=== PATIENT | male | born 1960 | race Caucasian/White ===

== ENCOUNTER 2022-03-20 15:08 | Emergency (ER) | payer OTHER, SELFPAY ==
--- NOTE | 2022-03-20 15:12 | ED.EAR ---
HPI - Ear Problem General Chief complaint: Ear Stated complaint: left ear pain Time Seen by Provider: 03/20/22 15:13 Source: patient Mode of arrival: ambulatory Limitations: no limitations History of Present Illness HPI Narrative: Mr. Dang is a 61-year-old male patient presenting to the clinic today with complaints of left ear pain X 2 weeks. He reports that his outer ear is swelling and building up fluid. He reports that he has tried to drain this without success. Has a history of getting frequent boils. External ear is red, hot to touch and tender to touch. He also reports that his ears are muffled and would like his ears to be cleaned out. MD Complaint: ear pain Related Data Allergies Allergy/AdvReac Type Severity Reaction Status Date / Time cefazolin Allergy Mild Hives Verified 03/20/22 15:37 Review of Systems Review of Systems: Pertinent positives per HPI. Patient denies any fever, chills, rash, headache, visual changes, dizziness, cough, runny nose, sore throat, shortness of breath, chest pain, palpitations, nausea, vomiting, diarrhea, constipation, abdominal pain, or any urinary issues. PMFSH Comments At the time of my signature, I reviewed and agree with the nursing past medical, surgical, social, and family history. There is no relevant family history pertinent to the patient complaint. Exam Narrative: General: Well-developed, well nourished, in no apparent distress Head: Normocephalic, atraumatic Eyes: Pupils equally round and reactive to light bilaterally, EOM intact, sclera and conjunctive clear, no discharge, lids normal Ears: Ear canals ceruminous, unable to visualize TMs, no drainage, hard of hearing. Left pinna swollen, red, fluctuant to palpation, tender, and erythemic. Nose: Nares patent, no discharge, no inflammation, no sinus tenderness. Mouth: Oropharynx without lesions or masses, good dentition, MMM. Neck: Supple, trachea midline, no enlargement of anterior or posterior cervical nodes, no thyroid masses or goiter palpable. Cardio: Regular rate and rhythm, s1 and s2 normal, no murmur appreciated. Resp: Clear to auscultation bilaterally anteriorly and posteriorly, no rhonchi, rales, wheezing or rubs Course Course Emergency Course: Portions of this record may have been created with voice recognition software. Level of Care: Express Care Visit Vital Signs Vital signs: Vital signs reviewed Procedures Abscess I/D Left ear: Date of Incision: 03/20/22 Side (if applicable): left Technique: needle aspiration Irrigation: No Packing used?: none I&D Results: Other (Serous fluid) Abcess I&D Additional Comments: Verbal consent obtained for incision and drainage. Risk and benefits explained and patient voiced understanding. Area was cleansed with technic care. Area was prepped and draped using sterile technique. An 18-gauge needle was then used to aspirate 3 ml of serous fluid from the left pinna. Patient tolerated well. Culture obtained and sent to lab. Ear Wax Removal Left Ear: Ear Wax Removal Date: 03/20/22 Additional Comments: After attempting ear lavage to left ear patient requested for me to discontinue as this was painful and he was concerned that his ear canal will swell up. No results. Medical Decision Making MDM Narrative Medical decision making narrative: At the time of assessment patient is resting comfortably on the exam table. Discussed incision and drainage of the left pinna and patient voiced understanding. An 18-gauge needle was used to aspirate fluid from the pinna and this was sent for a culture. Due to the history of boils and the cellulitis to the left pinna I will go ahead and place the patient on a prescription for Bactrim DS. Attempted to irrigate left ear however patient was unable to tolerate this and requested for me to stop after approximately 4 squirts in his ear. No results were obtained by ear lavage. Differential
[2022-03-20 15:16] VITALS: BP 137/109; PULSE 73; RESP 16; TEMP 36.3; O2SAT 97
--- NOTE | 2022-03-20 16:13 | PC.NURSE ---
1520- LOGISTICS CENTER MANAGER used 18 gauge needle to aspirate some fluid out of the upper ear cartilage. 3ml serosanginous fluid return. pt tolerated well. culture sent off of the fluid, covered area with a bandaid. 1540- pt was not able to the flushing of the ear with the elephant ear irrigation, and asked LOGISTICS CENTER MANAGER to stop.
== END 2022-03-20 15:47 | disposition home or self-care (01) ==
PROVIDERS: Emergency Provider Nurse Practitioner Family
DX: H60.12 Cellulitis of left external ear (principal); H61.23 Impacted cerumen, bilateral; I10 Essential (primary) hypertension; M19.90 Unspecified osteoarthritis, unspecified site
CPT/HCPCS: 10160; 87070; 87075; 87205; 99213; G0463

== ENCOUNTER 2022-04-22 17:49 | Emergency (ER) | payer OTHER, SELFPAY ==
[2022-04-22 18:07] VITALS: BP 130/90; PULSE 70; RESP 16; TEMP 36.7; O2SAT 99
--- NOTE | 2022-04-22 18:20 | ED.SKABFB ---
HPI - Skin/Abscess/Foreign Bdy General Chief complaint: Skin/Abscess/Foreign Body Stated complaint: rash Time Seen by Provider: 04/22/22 18:10 Source: patient Mode of arrival: ambulatory Limitations: no limitations History of Present Illness HPI narrative: 61-year-old male presented for complaint of rash to shoulders, back and arms for about 2 weeks. States the lesions are red, raised, and itch. He denies any drainage or pain to the sites. States his girlfriend is concerned that there is bedbugs. He endorses severe allergic reaction to pollen and poison jasmyne. He states he has been cutting the grass and pulling weeds lately. complaint: rash Related Data Home Medications Medication Instructions Recorded Confirmed No Home Medications 04/22/22 04/22/22 Allergies Allergy/AdvReac Type Severity Reaction Status Date / Time cefazolin Allergy Mild Hives Verified 04/22/22 17:57 Review of Systems Review of Systems: CONSTITUTIONAL: Denies body aches, fever, chills, or sweats. EYES: Denies visual changes, redness, or discharge. ENT: Denies rhinorrhea, congestion, sore throat CARDIOVASCULAR: Denies chest pain, palpitations, or edema. RESPIRATORY: Denies cough or dyspnea. GASTROINTESTINAL: Denies abdominal pain, nausea, vomiting, or diarrhea. SKIN:reports rash, itching MUSCULOSKELETAL: Denies back pain, joint pain, or myalgia. NEUROLOGIC: Denies headache, numbness, tingling, or weakness. PSYCH: Denies depression or anxiety. PMFSH Comments At time of signature, I have reviewed and agree with nursing past medical, surgical, social and family history unless otherwise noted. Please see nursing chart for further information. There is no relevant family history pertinent to the presenting complaint Exam Narrative: GENERAL: Well-appearing, appears older than stated age. ENT: Mucous membranes moist. NECK: Supple. CHEST: Clear to auscultation. No respiratory distress. HEART: Regular rate and rhythm. SKIN: Warm, dry. poor turgor. Patches of erythematous raised rash to upper shoulders, posterior neck, and arms, c/w dermatitis; no vesicles/drainage or tenderness to the sites. NEURO: Alert and oriented x3. PSYCH: Normal mood and affect Course Course Emergency Course: Patient is aware of diagnosis, understands and agrees to treatment plan. Anticipatory guidance given. Patient agrees to follow-up as directed and is aware of reasons to seek care at the emergency department. Portions of this record may have been created with voice recognition software Level of Care: Express Care Visit Vital Signs Vital signs: Vital Signs Temperature 98.0 F 04/22/22 18:07 Pulse Rate 70 04/22/22 18:07 Respiratory Rate 16 04/22/22 18:07 Blood Pressure 130/90 04/22/22 18:07 Pulse Oximetry 99 04/22/22 18:07 Oxygen Delivery Room Air 04/22/22 18:07 Temperature 98.0 F 04/22/22 18:07 Pulse Rate 70 04/22/22 18:07 Respiratory Rate 16 04/22/22 18:07 Blood Pressure 130/90 04/22/22 18:07 Pulse Oximetry 99 04/22/22 18:07 Oxygen Delivery Room Air 04/22/22 18:07 Reviewed MDM - Skin/Abscess/Foreign Bdy MDM Narrative Medical decision making narrative: Does not appear at this time to be erythema multiforme, bullous, SJS, TEN; no evidence at this time to suggest RMSF, endocarditis or Lyme disease; pt is stable, afebrile; appropriate for initial outpatient treatment; discussed the importance of follow-up, patient agrees. Declines steroid, wants to only take calamine lotion. Differential Diagnosis Differential diagnosis: Likely abscess of skin or subcutaneous tissue, urticaria, herpes zoster, cellulitis and contact dermatitis Discharge Plan Discharge Clinical Impression: Contact dermatitis Patient Disposition: Home, Self-Care Condition: Stable Instructions: Antibiotic Form, Contact Dermatitis (DC) Additional Instructions: Wash with gentle soap and water only. Use over the counter skin cre
== END 2022-04-22 18:34 | disposition home or self-care (01) ==
PROVIDERS: Emergency Provider Nurse Practitioner Family
DX: L25.9 Unspecified contact dermatitis, unspecified cause (principal); I10 Essential (primary) hypertension; M19.90 Unspecified osteoarthritis, unspecified site
CPT/HCPCS: 99211; G0463

== ENCOUNTER 2023-01-01 08:35 | Emergency (ER) | payer OTHER, SELFPAY ==
[2023-01-01] VITALS (40 sets, daily range): BP systolic 108–142; BP diastolic 66–111; PULSE 52–87; RESP 10–37; TEMP 37.1; O2SAT 97–100
--- NOTE | ~2023-01-01 | CT_ITS ---
Non-contrast Head CT History: Uncontrollable movements, altered mental status Technique: Axial non-contrast imaging of the brain was performed. Dose reduction technique was used on this scan by utilizing automated exposure control and iterative reconstruction technique. The dose -length product (DLP) was 605.33 mGy-cm. Findings: There is no evidence of intracranial hemorrhage, mass lesion, or acute infarct. Brain par enchyma appears normal. The ventricles and subarachnoid spaces are normal in size. The calvarium ap pears normal. The visualized paranasal sinuses and mastoid air cells are clear. Impression: No significant abnormality seen. Reviewed, dictated and finalized at location . CLE INSPECTOR Impression: No significant abnormality seen.
--- NOTE | ~2023-01-01 | XR_ITS ---
Clinical Indication: Weight loss, smoking history, shortness of breath PA and lateral views of the chest: Comparison: 02/26/2017 Findings: The lungs are clear, without evidence of focal consolidation or pleural effusion. Probable COPD. Cardiomediastinal silhouette is within normal limits. Bones and soft tissues are unremarkable. Impression: Probable COPD. Clear lungs. Reviewed, dictated and finalized at location . GY CONSERVATION DIRECTOR Impression: Probable COPD. Clear lungs.
--- NOTE | 2023-01-01 09:00 | ECG_ITS ---
Measurements Intervals Etoile Rate: 76 P: 78 ID: [id number] QRS: 82 QRSD: 92 T: 63 QT: 332 QTc: 374 Interpretive Statements SINUS RHYTHM CANNOT RULE OUT PREVIOUS SEPTAL MYOCARDIAL INFARCTION BORDERLINE ECG NO PREVIOUS ECG AVAILABLE FOR COMPARISON Electronically Signed On 01-01-2023 13:12:44 SMOKE CHASER by Maximilian Victoria M.D.
--- NOTE | 2023-01-01 09:37 | ED.GENADULT ---
HPI - General Adult General Chief complaint: Unspecified Stated complaint: numbness to arm, cramping to body Time Seen by Provider: 01/01/23 09:00 Source: patient Mode of arrival: EMS Limitations: no limitations History of Present Illness HPI narrative: Patient is a 62-year-old male who presents the ED via EMS with multiple complaints. Patient reports having issues with muscle cramping, spasming, and intermittent jerking of his upper and lower extremities for past 2 years. Over the last few months, the jerking and spasming have become painful. Patient has been treating his pain with street fentanyl. He states he uses a dab of fentanyl orally every 3 hours to control the pain. He does not inject medications. He has not tried anything else for pain and inquires about muscle relaxers. Patient also reports having had weight loss over the last few years. He does eat frequent meals and states his girlfriend cooks breakfast and lunch for him every day. Denies nausea, vomiting, abdominal pain, chest pain, difficulty breathing, fevers, cough, cold symptoms, dizziness, lightheadedness, passing out. Related Data Allergies Allergy/AdvReac Type Severity Reaction Status Date / Time cefazolin Allergy Mild Hives Verified 04/22/22 17:57 aspirin AdvReac Mild Muscle Verified 01/01/23 08:48 Spasms Review of Systems Review of Systems: CONSTITUTIONAL: Denies fever, chills, or sweats. EYES: Denies visual changes. ENT: Denies rhinorrhea, congestion, sore throat, or otalgia. CARDIOVASCULAR: Denies chest pain. RESPIRATORY: Denies cough or dyspnea. GASTROINTESTINAL: Denies abdominal pain, nausea, vomiting, or diarrhea. GENITOURINARY: Denies dysuria or hematuria. SKIN: Denies rash or itching. MUSCULOSKELETAL: See HPI. NEUROLOGIC: See HPI. All systems reviewed & are unremarkable except as noted in HPI and below PMFSH Past Medical History Medical History (Updated 01/01/23 @ 13:43 by Gisela Ramirez PA-C) No pertinent past medical history Surgical History Surgical History (Updated 01/01/23 @ 10:55 by Gisela Ramirez PA-C) No pertinent past surgical history Social History Social History (Updated 01/01/23 @ 10:55 by Gisela N. Gaudreault, PA-C) Smoking status: Current every day smoker Tobacco type: cigars Substance use: current Other substance usage details: Fentanyl Exam Narrative: GENERAL: Chronically ill, mildly disheveled, thin, non-toxic, in no acute distress. HEAD: Normocephalic, atraumatic. EYES: PERRLA/EOMI, conjunctiva clear. ENT: Partially edentulous. MMs normal. NECK: Supple. No adenopathy, no masses. RESPIRATORY: Airway patent, respirations nonlabored. Coarse lung sounds bilaterally. Clear to auscultation bilaterally, no rales, rhonchi, wheezing. CARDIOVASCULAR: Regular rate and rhythm without murmurs, rubs, or gallops. Radial and pedal pulses 2+ and equal bilaterally. ABDOMINAL: Soft, nontender, nondistended, no hepatosplenomegaly. Normoactive BS. MUSCULOSKELETAL: No gross deformities. Able to move all extremities but does appear generally weak. Good capillary refill peripherally in all extremities. SKIN: Warm, dry, normal color. No rashes. Clubbing noted to fingers bilaterally. Yellow stains to fingers bilaterally r/t cigarette smoking. NEURO: A&O X3. Speech clear. Cranial nerves II-XII grossly intact. No ataxic movements. No resting or intention tremor. No focal deficits. PSYCHIATRIC: Appropriate mood and affect. Normal interaction. Course Vital Signs Vital signs: Vital Signs Temperature 98.7 F 01/01/23 08:38 Pulse Rate 78 01/01/23 08:38 Respiratory Rate 18 01/01/23 08:38 Blood Pressure 140/111 H 01/01/23 08:38 Pulse Oximetry 100 01/01/23 08:38 Oxygen Delivery Room Air 01/01/23 08:38 Temperature 98.7 F 01/01/23 08:38 Pulse Rate 53 L 01/01/23 12:46 Respiratory Rate 15 01/01/23 12:46 Blood Pressure 116/74 01/01/23 13:01 Pulse Oximetry 100 01/01/23 13:15 Oxy
[2023-01-01 10:00] LABS: Basophils Absolute Auto 0.1 K/mm3 (0.0-0.1); Basophils Percent Auto 0.8 % (0.2-1.2); Eosinophils Absolute Auto 1.1 K/mm3 (0-0.3); Eosinophils Percent Auto 10.4 % (0-4.4); Hematocrit 43.3 % (42.0-52.0); Hemoglobin 14.5 g/dL (14.0-18.0); Immature Granulocyte Absolute 0.03 K/mm3 (0.00-0.031); Immature Granulocyte Percent A 0.3 % (0-0.5); Lymphocytes Absolute Auto 1.96 K/mm3 (0.9-3.2); Lymphocytes Percent Auto 18.6 % (18.3-44.2); Mean Corpuscular HGB Conc 33.5 g/dl (32-36); Mean Corpuscular Hemoglobin 30.6 pg (26-34); Mean Corpuscular Volume 91.4 fl (80-100); Mean Platelet Volume 9.6 fl (7.4-10.4); Monocytes Absolute Auto 0.9 K/mm3 (0.1-0.6); Monocytes Percent Auto 8.1 % (2.6-8.5); Neutrophils Absolute Auto 6.5 K/mm3 (1.3-6.7); Neutrophils Percent Auto 61.8 % (45.5-73.1); Platelet Count Result 218 k/mm3 (150-375); Red Blood Count 4.74 M/mm3 (4.6-6.20); Red Cell Distribution Width 13.5 % (11.5-14.5); White Blood Count 10.5 K/mm3 (4.5-10.0)
[2023-01-01 10:11] LABS: Alanine Aminotransferase 17 U/L (6-50); Albumin Level 3.9 g/dL (3.5-5.1); Alkaline Phosphatase 86 U/L (38-126); Anion Gap 3 mmol/L (8-16); Aspartate Amino Transferase 24 U/L (17-59); Bilirubin,Total 0.6 mg/dL (0.2-1.3); Blood Urea Nitrogen 16 mg/dL (9-20); Calcium 8.8 mg/dL (8.4-10.2); Carbon Dioxide 31 mmol/L (22-30); Chloride 99 mmol/L (98-107); Estimated CRCL calculation 62 ml/min; Estimated Glomerular Filt Rate > 60; Glucose 110 mg/dL (65-110); Magnesium 1.7 mg/dL (1.6-2.3); Potassium 3.8 mmol/L (3.4-5.0); Sodium 133 mmol/L (137-145)
== END 2023-01-01 14:24 | disposition home or self-care (01) ==
PROVIDERS: Emergency Provider Physician Assistant
DX: M62.838 Other muscle spasm (principal); F11.20 Opioid dependence, uncomplicated; F17.290 Nicotine dependence, other tobacco product, uncomplicated; R94.31 Abnormal electrocardiogram [ECG] [EKG]
CPT/HCPCS: 36415; 70450; 71046; 80053; 83735; 85025; 93005; 99284

== ENCOUNTER 2023-01-29 23:09 | Emergency (ER) | payer OTHER, SELFPAY ==
--- NOTE | ~2023-01-29 | CT_ITS ---
EXAMINATION: CT cervical spine wo con DATE: 01/30/2023 01:12 INDICATION: 3 months of diffuse nontraumatic neck pain TECHNIQUE: Computed tomography (CT) of the cervical spine was performed without intravenous contrast. Automated exposure control and iterative reconstruction technique were employed. The dose-length pro duct was 268.28 mGy-cm. 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 Straightening of the normal cervical lordos is. Vertebral body heights are normal. No fracture. Moderate disc height loss at C2-C3 and C6-C7 with mild disc height loss at the remaining cervical levels. Cervical soft tissues are unremarkable. Mild emphysema the apices of lungs. The following disc levels are specifically discussed: C2-C3: Posterior disc osteophyte complex. There is severe bilateral uncovertebral joint osteoarthriti s. There is moderate left facet joint osteoarthritis. Fusion with prominent hypertrophic change at th e right facet joint. There is moderate right and moderate to severe left neural foraminal stenosis. T here is mild central canal stenosis. C3-C4: Disc is bulging. There is mild left and moderate to severe right uncovertebral joint osteoarth ritis. There is moderate left and severe right facet joint osteoarthritis. There is mild bilateral ne ural foraminal stenosis. There is moderate central canal stenosis. C4-C5: Posterior disc osteophyte complex. There is mild right and moderate left uncovertebral joint o steoarthritis. There is moderate right and severe left facet joint osteoarthritis. There is moderate left and mild right neural foraminal stenosis. There is mild central canal stenosis. C5-C6: Posterior disc osteophyte complex. There is severe left and moderate to severe right uncoverte bral joint osteoarthritis. There is moderate left and severe right facet joint osteoarthritis. There is moderate bilateral neural foraminal stenosis. There is mild to moderate central canal stenosis. C6-C7: Disc is bulging. There is severe bilateral uncovertebral joint osteoarthritis. There is modera te right and severe left facet joint osteoarthritis. There is moderate bilateral neural foraminal liyah nosis. There is moderate central canal stenosis. C7-T1: The disc does not extend beyond the endplate margin. There is mild bilateral uncovertebral maddi nt osteoarthritis. There is severe bilateral facet joint osteoarthritis. There is mild bilateral neur al foraminal stenosis. There is no central canal stenosis. IMPRESSION: 1. Moderate cervical spondylosis. Reviewed, dictated and finalized at location A. ORK SYSTEMS OPERATOR
[2023-01-29 23:23] VITALS: BP 138/78; PULSE 74; RESP 18; TEMP 36.8; O2SAT 97
[2023-01-29 23:47] LABS: Basophils Absolute Auto 0.1 K/mm3 (0.0-0.1); Basophils Percent Auto 0.6 % (0.2-1.2); Eosinophils Absolute Auto 0.3 K/mm3 (0-0.3); Eosinophils Percent Auto 3.3 % (0-4.4); Hematocrit 47.2 % (42.0-52.0); Hemoglobin 15.3 g/dL (14.0-18.0); Immature Granulocyte Absolute 0.04 K/mm3 (0.00-0.031); Immature Granulocyte Percent A 0.4 % (0-0.5); Lymphocytes Absolute Auto 1.86 K/mm3 (0.9-3.2); Lymphocytes Percent Auto 18.9 % (18.3-44.2); Mean Corpuscular HGB Conc 32.4 g/dl (32-36); Mean Corpuscular Hemoglobin 30.2 pg (26-34); Mean Corpuscular Volume 93.1 fl (80-100); Mean Platelet Volume 9.8 fl (7.4-10.4); Monocytes Absolute Auto 0.7 K/mm3 (0.1-0.6); Monocytes Percent Auto 6.9 % (2.6-8.5); Neutrophils Absolute Auto 6.9 K/mm3 (1.3-6.7); Neutrophils Percent Auto 69.9 % (45.5-73.1); Platelet Count Result 229 k/mm3 (150-375); Red Blood Count 5.07 M/mm3 (4.6-6.20); Red Cell Distribution Width 13.5 % (11.5-14.5); White Blood Count 9.8 K/mm3 (4.5-10.0)
[2023-01-29 23:54] LABS: INR 1.1; Partial Thromboplastin Time 29.3 SECONDS (22.3-36.8); Prothrombin Time 13.6 Seconds (11.1-14.7)
[2023-01-30 00:06] LABS: Alanine Aminotransferase 17 U/L (6-50); Albumin Level 4.2 g/dL (3.5-5.1); Alkaline Phosphatase 103 U/L (38-126); Anion Gap 4 mmol/L (8-16); Aspartate Amino Transferase 24 U/L (17-59); Bilirubin,Total 0.6 mg/dL (0.2-1.3); Blood Urea Nitrogen 17 mg/dL (9-20); Calcium 9.1 mg/dL (8.4-10.2); Carbon Dioxide 31 mmol/L (22-30); Chloride 100 mmol/L (98-107); Estimated CRCL calculation 67 ml/min; Estimated Glomerular Filt Rate > 60; Glucose 103 mg/dL (65-110); Potassium 4.4 mmol/L (3.4-5.0); Sodium 135 mmol/L (137-145)
[2023-01-30 00:20] VITALS: BP 140/82; BP 156/89; PULSE 65; PULSE 70
[2023-01-30 00:24] VITALS: BP 150/110; PULSE 94
--- NOTE | 2023-01-30 00:55 | ED.GENADULT ---
HPI - General Adult General Chief complaint: GI Bleed Stated complaint: bright red rectal bleeding Time Seen by Provider: 01/30/23 00:08 Source: patient and old records reviewed Mode of arrival: EMS Limitations: no limitations History of Present Illness HPI narrative: Patient is a 62-year-old male who presents the ED via EMS with report of bright red rectal bleeding. Patient reports he was sitting in his recliner tonight and when he got up he noticed some bright red rectal bleeding on the chair. He wiped himself and noticed more blood. Patient denied any pain. EMS was then called. Patient does fentanyl orally every 6 hours. He does report frequent constipation related to this. He states he typically has a bowel movement every 3 days. He last had a bowel movement yesterday. Denied any rectal bleeding or melena at that time. He denies any abdominal pain, rectal pain, nausea, vomiting, urinary symptoms, fever, dizziness, lightheadedness. Patient also reports having neck pain for the last 3 months. He denies any injury. He has not tried anything for the pain other than fentanyl. He does report having tingling in his extremities for the last 2 years, has previously been seen in the ED for the symptoms and was referred to neurology. He has an appointment with neurology on 02/03. Related Data Allergies Allergy/AdvReac Type Severity Reaction Status Date / Time cefazolin Allergy Mild Hives Verified 01/29/23 23:29 aspirin AdvReac Mild Muscle Verified 01/29/23 23:29 Spasms Review of Systems Review of Systems: CONSTITUTIONAL: Denies fever, chills, or sweats. CARDIOVASCULAR: Denies chest pain. RESPIRATORY: Denies dyspnea. GASTROINTESTINAL: See HPI. GENITOURINARY: Denies dysuria or hematuria. SKIN: Denies rash or itching. MUSCULOSKELETAL: See HPI. NEUROLOGIC: See HPI. All systems reviewed & are unremarkable except as noted in HPI and below PMFSH Past Medical History Medical History No pertinent past medical history Surgical History Surgical History No pertinent past surgical history Social History Social History Smoking status: Current every day smoker Tobacco type: cigars Substance use: current Other substance usage details: Fentanyl Exam Narrative: GENERAL: Chronically ill-appearing, disheveled, thin, non-toxic, in no acute distress. HEAD: Normocephalic, atraumatic. NECK: Supple. No adenopathy, no masses. No meningeal signs. Full ROM. Diffuse nonspecific tenderness. RESPIRATORY: Airway patent, respirations nonlabored. Coarse breath sounds but clear to auscultation bilaterally, no rales, rhonchi, wheezing. CARDIOVASCULAR: Regular rate and rhythm without murmurs, rubs, or gallops. Peripheral pulses 2+ and equal bilaterally. ABDOMINAL: Soft, no tenderness to palpation, nondistended, no hepatosplenomegaly. Normoactive BS. RECTAL: Normal rectal tone. External hemorrhoid noted on exam, slightly smaller than the size of a marble, hemorrhoid thrombosed with clot almost entirely evacuated. Bleeding coming from clot. No significant tenderness over hemorrhoid. BRENDEN with brown stool noted, guaiac positive however likely contaminant from hemorrhoid. MUSCULOSKELETAL: Moves all extremities. Strength/ROM intact without gross deformities. SKIN: Warm, dry, normal color. No rashes. NEURO: A&O X3. Speech clear. Cranial nerves II-XII grossly intact. No ataxic movements. PSYCHIATRIC: Anxious, tearful. Normal interaction. Course Vital Signs Vital signs: Vital Signs Temperature 98.2 F 01/29/23 23:23 Pulse Rate 74 01/29/23 23:23 Respiratory Rate 18 01/29/23 23:23 Blood Pressure 138/78 01/29/23 23:23 Pulse Oximetry 97 01/29/23 23:23 Oxygen Delivery Room Air 01/29/23 23:23 Temperature 98 F 01/30/23 03:31 Pulse Rate 77
[2023-01-30 03:31] VITALS: BP 131/69; PULSE 77; RESP 18; TEMP 36.6; O2SAT 99
== END 2023-01-30 03:31 | disposition home or self-care (01) ==
PROVIDERS: Emergency Medicine; Emergency Provider Physician Assistant; PCP Family Medicine
DX: K64.4 Residual hemorrhoidal skin tags (principal); M54.2 Cervicalgia; K59.03 Drug induced constipation; J44.9 Chronic obstructive pulmonary disease, unspecified
CPT/HCPCS: 36415; 72125; 80053; 85025; 85610; 85730; 86850; 86900; 86901; 99284

== ENCOUNTER 2023-02-09 12:20 | Outpatient (CLI) | payer OTHER, SELFPAY ==
--- NOTE | ~2023-02-09 | CT_ITS ---
Noncontrast CT scan of the cervical spine Technique: Multiple contiguous axial [address] images of the cervical spine were obtained and rec onstructed in 2D sagittal and coronal planes on the acquisition scanner. Dose reduction technique was used on this scan by utilizing automated exposure control, adjustment of the mA and/or kV according to patient size. Clinical History: Jerking movement of extremities COMPARISON: 01/30/2023 Findings: No acute fracture seen. Osseous alignment is unchanged from prior exam. Stable mild grade 1 anterolisthesis of C2 over C3, and of C3 over C4. Stable moderate degenerative disc narrowing at C2- C3 and C5 and C6 and C6-C7. At C2-C3, there is mild disc ossify complex with right-sided facet joint hypertrophy and bilateral ne ural foraminal narrowing. At C3-C4, there is mild right-sided facet arthropathy. Small central disc bulge present, probable mil d central canal stenosis. There is probable bilateral neural foraminal narrowing. At C4-C5, there is minimal disc bulge. There is left-sided facet arthropathy with severe left neural foraminal narrowing. At C5-C6, there is mild central canal stenosis. There is bilateral neural foraminal narrowing with fa cet arthropathy, right worse than left. At C6-C7, there is probable minimal canal stenosis. There is minimal bilateral neural foraminal narro wing. No prevertebral soft tissue swelling. Impression: No fracture. Moderate degenerative spondylosis is unchanged from recent prior exam. Minimal grade 1 anterolisthesis of C2 over C3, and of C3 over C4, unchanged. Reviewed, dictated and finalized at [facility]. Impression: No fracture. Moderate degenerative spondylosis is unchanged from recent prior exam. Minimal grade 1 anterolisthesis of C2 over C3, and of C3 over C4, unchanged.
--- NOTE | ~2023-02-09 | CT_ITS ---
Noncontrast CT scan of the thoracic and lumbar spine CLINICAL HISTORY: Jerking movements of the extremities TECHNIQUE: Axial noncontrast imaging of the thoracic and lumbar spine was performed. Sagittal and cor onal reformatted images were constructed. Dose reduction technique was used on this scan by utilizing automated exposure control and iterative reconstruction technique. The dose-length product (DLP) was 796.84 mGy-cm. Thoracic spine findings: No fracture or subluxation suspicious spine. Intervertebral disc spaces are relatively well-preserved. No definite spinal canal stenosis or cord compression. Paravertebral soft tissues are unremarkable. Lumbar spine findings: No fracture or subluxation identified. Prominent Schmorl's node at the superio r plate of L3. Small Schmorl's noted at the supraclavicular L5. There is moderate degenerative disc n arrowing at L5-S1. At L1-L2, there is no disc bulge or herniation. No spinal canal stenosis stenosis. Suspected moderate bilateral neural foraminal narrowing. At L2-L3, there is mild disc bulge and mild facet arthropathy. No akin spinal canal stenosis. Probab le severe bilateral neural foraminal narrowing. At L3-L4, there is disc bulge and facet arthropathy, with probable mild central canal stenosis. There is severe bilateral neural foraminal narrowing. At L4-L5, disc bulge and facet arthropathy are present, probable moderate to severe central canal liyah nosis. There is severe bilateral neural foraminal narrowing. At L5-S1, there is mild disc bulge. No definite spinal canal stenosis. There is moderate to advanced bilateral neural foraminal narrowing. Paravertebral soft tissues are unremarkable. IMPRESSION: Advanced degenerative spondylosis of the lumbar spine with multilevel severe neural foraminal narrowi ng. Probable moderate to severe central canal stenosis at L4-L5. Please see details above. No significant abnormality of the thoracic spine identified. Reviewed, dictated and finalized at location . IMPRESSION: Advanced degenerative spondylosis of the lumbar spine with multilevel severe ne ural foraminal narrowing. Probable moderate to severe central canal stenosis at L4-L5. Please see details above. No significant abnormality of the thoracic spine identified.
== END 2023-02-09 12:21 | disposition home or self-care (01) ==
PROVIDERS: Visit Provider Psychiatry & Neurology Neurology
DX: R25.2 Cramp and spasm (principal); M43.06 Spondylolysis, lumbar region; M43.12 Spondylolisthesis, cervical region
CPT/HCPCS: 72125; 72128; 72131

== ENCOUNTER 2023-03-16 08:59 | Outpatient (CLI) | payer OTHER, SELFPAY ==
--- NOTE | 2023-03-16 11:15 | NEURO_ITS ---
Impression: Patient reports a history of of numbness in all 4 extremities. # Mild right Carpal Tunnel syndrome and moderate left Carpal Tunnel Syndrome. # Chronic neurogenic changes in right dorsal interosseus and extensor indicis proprius; This finding raises concern for a more proximal lesion such as right lower cervical radiculopathy. # Decreased CMAPs of left tibial nerve and left peroneal nerve, chronic neurogenic changes in the left fibularis longus and left extensor digitorum brevis, prolonged peroneal and tibial F-waves on the left; These findings raise concern for a more proximal lesion such as left lower lumbosacral radiculopathy. # Please note, paraspinal muscles were not examined. # Clinical correlation is recommended. Nerve Conduction Studies Anti Sensory Summary Table Stim Site NR Peak (ms) P-T Amp (?V) Site1 Site2 Delta-P (ms) Dist (cm) Miguel (m/s) Left Median Anti Sensory (2-3nd Digit) Wrist 4.9 4.4 Wrist 2-3nd Digit 4.9 14.0 29 Wrist 5.7 2.4 Wrist 2-3nd Digit 4.9 14.0 29 Right Median Anti Sensory (2-3nd Digit) Wrist 4.8 10.0 Wrist 2-3nd Digit 4.8 14.0 29 Wrist 4.7 6.8 Wrist 2-3nd Digit 4.8 14.0 29 Left Radial Anti Sensory (Base 1st Digit) Wrist 2.1 30.3 Wrist Base 1st Digit 2.1 0.0 Right Radial Anti Sensory (Base 1st Digit) Wrist 2.3 20.0 Wrist Base 1st Digit 2.3 0.0 Left Sup Fibular Anti Sensory (Ant Lat Mall) 14 cm 3.9 11.0 14 cm Ant Lat Mall 3.9 16.0 41 Right Sup Fibular Anti Sensory (Ant Lat Mall) 14 cm 3.9 1.3 14 cm Ant Lat Mall 3.9 16.0 41 Left Sural Anti Sensory (Lat Mall) Calf 4.0 29.9 Calf Lat Mall 4.0 16.0 40 Right Sural Anti Sensory (Lat Mall) Calf 3.7 29.2 Calf Lat Mall 3.7 16.0 43 Left Ulnar Anti Sensory (5th Digit) Wrist 3.7 12.9 Wrist 5th Digit 3.7 14.0 38 Right Ulnar Anti Sensory (5th Digit) Wrist 2.7 22.8 Wrist 5th Digit 2.7 14.0 52 Motor Summary Table Stim Site NR Onset (ms) O-P Amp (mV) Site1 Site2 Delta-0 (ms) Dist (cm) Miguel (m/s) Left Median Motor (Abd Poll Brev) Wrist 5.3 2.0 Elbow Wrist 5.2 27.0 52 Elbow 10.5 1.6 Right Median Motor (Abd Poll Brev) Wrist 4.3 3.8 Elbow Wrist 4.8 26.0 54 Elbow 9.1 3.2 Left Peroneal Motor (Vastus Med) Ankle 5.3 0.8 Popit Ankle 11.0 46.0 42 Popit 16.3 0.5 B Fib Ankle 8.5 34.0 40 B Fib 13.8 0.6 Right Peroneal Motor (Vastus Med) Ankle 5.5 5.0 Popit Ankle 11.9 48.0 40 Popit 17.4 3.8 B Fib Ankle 8.1 35.0 43 B Fib 13.6 4.6 Left Tibial Motor (Abd Baird Brev) Ankle 5.3 1.3 Knee Ankle 10.5 43.0 41 Knee 15.8 1.1 Right Tibial Motor (Abd Baird Brev) Ankle 5.2 5.5 Knee Ankle 10.0 41.0 41 Knee 15.2 4.3 Left Ulnar Motor (Abd Dig Minimi) Wrist 3.0 5.7 A Elbow Wrist 5.8 31.0 53 A Elbow 8.8 4.5 B Elbow Wrist 4.0 21.0 53 B Elbow 7.0 5.0 Right Ulnar Motor (Abd Dig Minimi) Wrist 2.8 2.8 A Elbow Wrist 5.8 30.0 52 A Elbow 8.6 2.2 B Elbow Wrist 4.2 22.0 52 B Elbow 7.0 2.2 F Wave Studies NR F-Lat (ms) L-R F-Lat (ms) Left Median (Mrkrs) (Abd Poll Brev) 31.29 0.88 Right Median (Mrkrs) (Abd Poll Brev) 30.41 0.88 Left Peroneal (Mrkrs) (EDB) 59.79 1.99 Right Peroneal (Mrkrs) (EDB) 57.80 1.99 Left Tibial (Mrkrs) (Abd Hallucis) 59.42 0.82 Right
== END 2023-03-16 09:00 | disposition home or self-care (01) ==
PROVIDERS: Visit Provider Psychiatry & Neurology Neurology
DX: R25.2 Cramp and spasm (principal); G56.03 Carpal tunnel syndrome, bilateral upper limbs
CPT/HCPCS: 95886; 95913